=== PATIENT | female | born 1950 | race Caucasian/White ===

== ENCOUNTER → 2023-12-31 17:07 | Outpatient (REF) | payer OTHER, SELFPAY | LOC: HWRAD 17:07 | PROVIDERS: ATTENDING PHYSICIAN Nurse Practitioner Family | DX: U07.1 COVID-19 (principal); R05.9 Cough, unspecified | CPT/HCPCS: 71046 ==

== ENCOUNTER → 2024-01-12 09:59 | Outpatient (REF) | payer OTHER, SELFPAY | LOC: HWRCS 09:59 | PROVIDERS: ATTENDING PHYSICIAN Internal Medicine Critical Care Medicine; FAMILY PHYSICIAN Nurse Practitioner Family | DX: J84.89 Other specified interstitial pulmonary diseases (principal); R76.8 Other specified abnormal immunological findings in serum; I27.29 Other secondary pulmonary hypertension | CPT/HCPCS: 93306 ==

== ENCOUNTER 2024-04-23 19:06 | Emergency (ER) | payer OTHER, SELFPAY ==
[2024-04-23 19:09] VITALS: BP 132/84
[2024-04-23 21:52] LABS: % Basophils 0.3 % (0-2); % Eosinophils 0.7 % (0-6); % Immature Granulocytes 0.4 % (0-0.5); % Lymphocytes 15.4 % (20.5-51.1); % Monocytes 12.3 % (1.7-9.3); % Neutrophils 70.9 % (42.2-75.2); Absolute Eosinophils 0.1 10^3/uL (0-0.7); Absolute Lymphocytes 1.1 10^3/uL (1.2-3.4); Absolute Monocytes 0.9 10^3/uL (0.1-0.6); Absolute Neutrophils 5.1 10^3/uL (1.4-6.5); Hematocrit 34.2 % (37.0-47.0); Hemoglobin 12.1 g/dL (12.0-16.0); Mean Corp Hgb Conc. 35.4 g/dL (33.0-37.0); Mean Corpuscular Hgb 32.3 pg (27.0-31.0); Mean Corpuscular Volume 91.2 fL (81.0-99.0); Mean Platelet Volume 9.1 fL (7.4-10.4); Nucleated Red Blood Cells % 0 %; Platelet Count 249 10^3/uL (130-400); Red Blood Cell Count 3.75 10^6/uL (4.20-5.40); Red Cell Dist. Width 13.9 % (11.5-14.5); White Blood Cell Count 7.3 10^3/uL (4.8-10.8)
[2024-04-23 21:53] LABS: Urine Albumin Trace (Neg - Trace); Urine Bilirubin Negative (Negative); Urine Character Clear (Clear); Urine Color Yellow; Urine Glucose Negative (Negative); Urine Ketone Negative (Negative); Urine Leukocyte 2+ (Negative); Urine Nitrite Negative (Negative); Urine Occult Blood Negative (Negative); Urine Specific Gravity 1.015 (<1.030); Urine Urobilinogen Negative (Neg - 1+)
[2024-04-23 22:02] LABS: Urine Squamous Cell >30 /LPF (Few)
[2024-04-23] MEDS: NSS 500 IV (22:02)
[2024-04-23] MEDS: TORADOL 30 MG IV (22:02)
[2024-04-23 22:03] LABS: Urine Bacteria Few (Negative); Urine Red Blood Cell None Seen /HPF (0-2); Urine Yeast Few (Negative)
[2024-04-23 22:34] LABS: ALT (SGPT) 16 U/L (0-35); AST (SGOT) 23 U/L (14-36); Albumin 3.9 g/dl (3.5-5.0); Alkaline Phosphatase 62 U/L (38-126); Blood Urea Nitrogen 17 mg/dl (7-17); Carbon Dioxide 28 mmol/L (22-30); Chloride 98 mmol/L (98-107); Glucose 105 mg/dl (70-99); Potassium 3.9 mmol/L (3.5-5.1); Sodium 134 mmol/L (135-145); Total Bilirubin 1.3 mg/dl (0.2-1.3); eGFR > 60.00
--- NOTE | 2024-04-23 22:48 | ED.GENMED ---
History of Present Illness
<Jay Slaughter Jr., PA-C - Last Filed: 04/23/24 23:53>
General
Chief Complaint: Skin Problem
Source: patient
Exam Limitations: none
Time Seen by Provider: 04/23/24 20:40
Nursing documentation reviewed up to this point in time: agreed with
History of Present Illness
History of Present Illness:
73-year-old female with past medical history of vertigo, hypertension, GERD presenting to the emergency department today with concerns of multiple concerns. Patient's main concern is that she has active shingles rash to the buttock. She also
concerned that she has had difficulty urinating over the past few hours she has been chronically constipated as well. Denies any specific chest pain shortness of breath nausea vomiting.
Past History
<ANAID Waggoner Jr. Last Filed: 04/23/24 23:53>
Past History
ED Past Medical History: HTN and Other (Sleep apnea wears CPAP, barretts esophagus)
ED Past Surgical History: Orthopedic (Left knee replacement, Right total hip replacement and right Knee. Carpal tunnel, Left bunionectomy) and Other (cataracts)
Social History
Tobacco: Former smoker
Alcohol: Occasional
Drug: None
Personal:
Living: with family
Employment: Retired
Review of Systems
<Jay Slaughter Jr., PA-C - Last Filed: 04/23/24 23:53>
Review of Systems
Allergies reviewed?: Yes
All Other Systems: ROS reviewed and negative except as documented in HPI and ROS
Phy Exam
<Jay Slaughter Jr., PA-C - Last Filed: 04/23/24 23:53>
Physical Exam
Physical Exam:
GENERAL: Alert , in no apparent distress
EYE: pupils equal and reactive
NECK: Supple, no significant adenopathy.
ENT: o/p clr, mmm.
CARDIAC: Regular rate and rhythm .
LUNGS: Clear breath sounds bilaterally, no acute respiratory distress, no wheezes/rales/rhonchi
ABDOMEN: Soft, without focal tenderness, no r/g, no cvat
Rectal: Patient has vesicles overlying erythematous base tenderness palpation to the right buttock region no fluctuance or induration. Multiple external hemorrhoids to the anus.
NEUROLOGICAL: Alert and oriented, no focal neuro deficits
SKIN: Warm and dry, skin intact.
MUSCULOSKELETAL: No edema, well perfused.
PSYCH: Normal and appropriate interaction.
Course
<Jay Slaughter Jr., ANAID - Last Filed: 04/23/24 23:53>
Orders/Labs/Results
Orders:
Orders
04/23/24 21:25
0.9% Sodium Chloride 500 ml [Nss] 500 ml IV BOLUS
Ketorolac [Toradol] 30 mg IV NOW STA
04/23/24 21:43
Complete Blood Count/With Diff Urgent
Urinalysis Reflex To Culture Urgent
Date Specimen was Collected: 04/23/24
Time Specimen was Collected: 21:30
Urine Microscopic Reflex Cult Urgent
Urine Culture Urgent
JEFF Source: U
Specimen Description:
Date Specimen was Collected: 04/23/24
Time Specimen was Collected: 21:30
04/23/24 22:13
Comprehensive Metabolic Panel Urgent
04/23/24 22:42
Cabrera Placement- Treatment ONCE
Reason for insertion: Acute Retention
04/24/24 00:02
CT Abd/Pel (IV only)-DH only Urgent
Reason For Exam: abdpain
Abnormal Lab Results
04/23/24 04/23/24
21:43 22:13
RBC 3.75 L 10^6/uL
(4.20-5.40)
Hct 34.2 L %
(37.0-47.0)
MCH 32.3 H pg
(27.0-31.0)
Absolute Lymphs (auto) 1.1 L 10^3/uL
(1.2-3.4)
Absolute Monos (auto) 0.9 H 10^3/uL
(0.1-0.6)
Lymphocytes % 15.4 L %
(20.5-51.1)
Monocytes % 12.3 H %
(1.7-9.3)
Sodium 134 L mmol/L
(135-145)
Glucose 105 H mg/dl
(70-99)
Leukocyte Esterase Rfl 2+ A
(Negative)
Urine Bacteria (Reflex) Few A
(Negative)
Urine Yeast Few A
(Negative)
04/23/24 21:43
04/23/24 22:13
Vital Signs
Initial and Last Documented VS:
Initial Vital Signs
Temp Pulse Resp BP Pulse Ox
100.1 F 109 20 132/84 97
04/23/24 19:09 04/23/24 19:09 04/23/24 19:09 04/23/24 19:09 04/23/24 19:09
Last Documented Vital Signs
Temp Pulse Resp BP Pulse Ox
100.1 F 109 20 132/84 97
04/23/24 19:09 04/23/24 19:09 04/23/24 19:09 04/23/24 19:09 04/23/24 19:09
<Xavier España, DO - Last Filed: 04/24/24 01:08>
Orders/Labs/Results
Orders:
Orders
04/23/24 21:25
0.9% Sodium Chloride 500 ml [Nss] 500 ml IV BOLUS
Ketorolac [Toradol] 30 mg IV NOW STA
04/23/24 21:43
Complete Blood Count/With Diff Urgent
Urinalysis Reflex To Culture Urgent
Date Specimen was Collected: 04/23/24
Time Specimen was Collected: 21:30
Urine Microscopic Reflex Cult Urgent
Urine Culture Urgent
JEFF Source: U
Specimen Description:
Date Specimen was Collected: 04/23/24
Time Specimen was Collected: 21:30
04/23/24 22:13
Comprehensive Metabolic Panel Urgent
04/23/24 22:42
Cabrera Placement- Treatment ONCE
Reason for insertion: Acute Retention
04/24/24 00:02
CT Abd/Pel (IV only)-DH only Urgent
Reason For Exam: abdpain
Abnormal Lab Results
04/23/24 04/23/24
21:43 22:13
RBC 3.75 L 10^6/uL
(4.20-5.40)
Hct 34.2 L %
(37.0-47.0)
MCH 32.3 H pg
(27.0-31.0)
Absolute Lymphs (auto) 1.1 L 10^3/uL
(1.2-3.4)
Absolute Monos (auto) 0.9 H 10^3/uL
(0.1-0.6)
Lymphocytes % 15.4 L %
(20.5-51.1)
Monocytes % 12.3 H %
(1.7-9.3)
Sodium 134 L mmol/L
(135-145)
Glucose 105 H mg/dl
(70-99)
Leukocyte Esterase Rfl 2+ A
(Negative)
Urine Bacteria (Reflex) Few A
(Negative)
Urine Yeast Few A
(Negative)
04/23/24 21:43
04/23/24 22:13
Vital Signs
Initial and Last Documented VS:
Initial Vital Signs
Temp Pulse Resp BP Pulse Ox
100.1 F 109 20 132/84 97
04/23/24 19:09 04/23/24 19:09 04/23/24 19:09 04/23/24 19:09 04/23/24 19:09
Last Documented Vital Signs
Temp Pulse Resp BP Pulse Ox
100.1 F 109 20 132/84 97
04/23/24 19:09 04/23/24 19:09 04/23/24 19:09 04/23/24 19:09 04/23/24 19:09
<Jay Slaughter Jr., PA-C - Last Filed: 04/23/24 23:53>
MDM/Problems Addressed
MDM/Problems Addressed:
73-year-old female presenting to the emergency department today with concerns of rash to the buttock recently diagnosed with shingles started on antiviral as well as Augmentin for potential secondary bacterial infection. There is also concern
constipated also has not been able to urinate for half of the day today as well. Here she was found to be retaining urine ended up getting a Cabrera catheter urinalysis without obvious infection. Labs without acute abnormalities. Rash was confirmed
to be consistent with shingles rash but no signs of secondary bacterial infection no fluctuance or induration. Patient was reassessed after labs were resulted no acute abnormalities to the labs urinalysis without signs of infection but patient
still with some ongoing discomfort to the abdomen CT scan was ordered for further assessment.
<Xavier España DO - Last Filed: 04/24/24 01:08>
*Critical Care Note
Total Time (30-74mins, 75-104mins- exclusive of procedures): Not Applicable
ED Attending Note
<Jay Slaughter Jr., PA-C - Last Filed: 04/23/24 23:53>
-
Portions of this chart may have been created with voice recognition software.� Occasional wrong word or��sound alike� substitutions may have occurred due to the inherent limitations of voice recognition software.
<Xavier España DO - Last Filed: 04/24/24 01:08>
ED Attending Note
Patient seen and examined by attending physician: Yes
I performed the substantive portion of visit, reviewed & personally made and approve the management plan that is documented in note by myself or TRINITY.: Yes
ED Attending Note:
Seen with PA agree with assessment and plan nontoxic 73-year-old female CT scan reviewed with patient she would like to have her Cabrera removed, to reiterate that she may have recurrent retention requiring a second ER visit
Discharge Plan
Departure
Patient with high blood pressure during this ER visit?: No
Condition: Good
Covid-19: Not Applicable
Discharge Problem:
Acute urinary retention, Shingles, Constipation
Instructions: How to Care for Your Cabrera Catheter, Shingles
Prescriptions:
New
valacyclovir 1 gram tablet
1,000 mg PO TID 7 Days Qty: 21 0RF
amoxicillin-pot clavulanate 875-125 mg tablet
1 tab PO BID 7 Days Qty: 14 0RF
No Action
omeprazole 20 MG capsule,delayed release(DR/EC)
20 mg PO DAILY
cholecalciferol (vitamin D3) [Vitamin D3] 25 MCG capsule
50 mcg PO DAILY
magnesium 200 MG tablet
400 mg PO DAILY
Vitamin B-Complex With B 12
1 tab PO DAILY
hydrochlorothiazide 25 MG tablet
25 mg PO DAILY Qty: 1 0RF
Rx Instructions:
Hold if systolic blood pressure <130
amlodipine 2.5 mg tablet
2.5 mg PO DAILY Qty: 90 5RF
losartan 50 mg Tablet
50 mg PO DAILY
vitamin A-vitamin C-vit E-min Tablet
1 tab PO DAILY
guaifenesin 600 mg Tablet Extended Release 12hr
1,200 mg PO Q12 7 Days Qty: 28 0RF
cefdinir 300 mg capsule
300 mg PO Q12H 5 Days Qty: 10 0RF
azithromycin 500 mg tablet
500 mg PO DAILY 1 Days Qty: 1 0RF
ondansetron 4 mg tablet,disintegrating
4 mg PO TID PRN (Reason: nausea and vomiting) Qty: 10 0RF
Referrals:
Librado Dc CRNP [Family Provider] -
Joel Gann MD [Active] - Follow up in 5-7 days
Activity Restrictions/Additional Instructions:
You came to the emergency department today with a few concerns. You are found to have shingles please take valacyclovir 3 times daily over the next week as well as Augmentin twice daily over the next week. Additionally you have constipation.
Please take mag citrate as a single dose as well as MiraLAX daily as needed. Please help closely with urology to have your Cabrera catheter removed. Return to the emergency department for any worsening, new or concerning symptoms.
Interventions
Interventions:
*Risk Screen - Suicide Last Done: 04/23/24 19:09
*General Assessment Last Done: 04/23/24 19:09
*Neglect/Abuse Screening Last Done: 04/23/24 19:09
ED-Skin Assessment Last Done: 04/23/24 21:20
Discharge Date and Time
Print Language: INDONESIAN
[2024-04-24 01:21] VITALS: BP 127/88
== END 2024-04-24 01:35 | disposition home or self-care (01) ==
LOC: EMR 19:06
PROVIDERS: Physician Assistant; EMERGENCY PHYSICIAN Emergency Medicine; FAMILY PHYSICIAN Nurse Practitioner Family
DX: R33.9 Retention of urine, unspecified (principal); B02.9 Zoster without complications; K59.00 Constipation, unspecified; I10 Essential (primary) hypertension; K21.9 Gastro-esophageal reflux disease without esophagitis; Z87.891 Personal history of nicotine dependence
CPT/HCPCS: 99285; 96374; 96361; 51798; 51702; 74177; 80053; 81003; 81015; 85025; 87086; Q9967

== ENCOUNTER → 2024-11-05 14:19 | Outpatient (REF) | payer OTHER, SELFPAY | LOC: HWRCS 14:19 | PROVIDERS: ATTENDING PHYSICIAN Internal Medicine Critical Care Medicine; FAMILY PHYSICIAN Nurse Practitioner Family | DX: I27.29 Other secondary pulmonary hypertension (principal); G47.33 Obstructive sleep apnea (adult) (pediatric); J84.9 Interstitial pulmonary disease, unspecified; R76.8 Other specified abnormal immunological findings in serum | CPT/HCPCS: 93306 ==

== ENCOUNTER → 2024-11-08 09:56 | Outpatient (REF) | payer OTHER, SELFPAY | LOC: HWRAD 09:56 | PROVIDERS: ATTENDING PHYSICIAN Internal Medicine Critical Care Medicine; FAMILY PHYSICIAN Nurse Practitioner Family; REFERRING PHYSICIAN Internal Medicine | DX: J84.89 Other specified interstitial pulmonary diseases (principal); R76.8 Other specified abnormal immunological findings in serum; I27.29 Other secondary pulmonary hypertension | CPT/HCPCS: 71250 ==

== ENCOUNTER → 2024-11-29 14:39 | Outpatient (REF) | payer OTHER, SELFPAY | LOC: HWWDC 14:39 | PROVIDERS: ATTENDING PHYSICIAN Nurse Practitioner Family; REFERRING PHYSICIAN Obstetrics & Gynecology | DX: Z12.31 Encounter for screening mammogram for malignant neoplasm of breast (principal) | CPT/HCPCS: 77063; 77067 ==

== ENCOUNTER → 2025-03-30 16:06 | Outpatient (REF) | payer OTHER, SELFPAY | LOC: RAD 16:06 | PROVIDERS: ATTENDING PHYSICIAN Nurse Practitioner Family | DX: Z00.01 Encounter for general adult medical examination with abnormal findings (principal); R60.0 Localized edema | CPT/HCPCS: 93971 ==

== ENCOUNTER → 2025-08-03 14:53 | Outpatient (REF) | payer OTHER, SELFPAY | LOC: HWRAD 14:53 | PROVIDERS: ATTENDING PHYSICIAN Nurse Practitioner Family | DX: M54.2 Cervicalgia (principal) | CPT/HCPCS: 72050 ==

== ENCOUNTER 2025-10-24 10:59 | Emergency (ER) | payer OTHER, SELFPAY ==
[2025-10-24 11:05] VITALS: BP 135/67
[2025-10-24 11:21] VITALS: BMI 38.4
[2025-10-24 11:32] VITALS: BP 126/56
[2025-10-24 11:54] LABS: Hematocrit 34.9 % (37.0-47.0); Hemoglobin 11.8 g/dL (12.0-16.0); Mean Corp Hgb Conc. 33.8 g/dL (33.0-37.0); Mean Corpuscular Volume 93.6 fL (81.0-99.0); Nucleated Red Blood Cells % 0 %; Platelet Count 236 10^3/uL (130-400); Red Cell Dist. Width 13.8 % (11.5-14.5)
--- NOTE | 2025-10-24 12:03 | ED.GENMED ---
History of Present Illness
General
Chief Complaint: Fever
Source: patient and spouse
Exam Limitations: none
Time Seen by Provider: 10/24/25 11:20
History of Present Illness
History of Present Illness:
75-year-old female with a history of interstitial lung disease presents with fever chills myalgias cough congestion. Started 2 to 3 days ago. Had low pulse ox's at home today but was not unusually short of breath. In addition these pulse ox's
would vary from the 70s to the 90s. Patient has been around a ill grandchild the last few days
Past History
Past History
ED Past Medical History: HTN and Other (Sleep apnea wears CPAP, barretts esophagus. Interstitial lung disease)
ED Past Surgical History: Orthopedic (Left knee replacement, Right total hip replacement and right Knee. Carpal tunnel, Left bunionectomy) and Other (cataracts)
Social History
Tobacco: Former smoker
Alcohol: Occasional
Drug: None
Personal:
Living: with family
Employment: Retired
Phy Exam
Physical Exam
Physical Exam:
GENERAL: Alert and oriented in no apparent distress
EYE: Orbits normal.
NECK: Supple, no significant adenopathy.
ENT: Pharynx without erythema
CARDIAC: Regular rate and rhythm without any obvious murmurs.
LUNGS: No respiratory distress. However crackles and mild expiratory wheezing mostly in the left base
ABDOMEN: Soft, without focal tenderness or distention
NEUROLOGICAL: Alert and oriented , grossly non-focal
SKIN: Warm and dry, no rash or lesion, no discoloration, skin intact.
MUSCULOSKELETAL: No edema,no deformity.Good color
PSYCH: Normal and appropriate interaction.
Course
Orders/Labs/Results
Orders:
Orders
10/24/25 11:07
Electrocardiogram (*1) Urgent
Reason for Study: Shortness of Breath
EKG- Treatment ONCE
10/24/25 11:31
COVID-19 Antigen Urgent
Source: Nasal Swab
Complete Blood Count/With Diff Urgent
Comprehensive Metabolic Panel Urgent
Influenza A+B Rapid Molecular Urgent
JEFF Source: Nasal Swab
Specimen Description:
10/24/25 11:35
CXR2 [CR Chest - 2 Views ] Urgent
Comment:
Reason For Exam: Cough/fever
10/24/25 11:44
RSV [Respiratory Syncytial Virus] Urgent
JEFF Source: Nasal Swab
Specimen Description:
Date Specimen was Collected: 10/24/25
Time Specimen was Collected: 11:38
10/24/25 13:28
Doxycycline [Vibramycin] 100 mg PO NOW STA
Oseltamivir Phosphate [Tamiflu] 75 mg PO NOW STA
Abnormal Lab Results
10/24/25
11:31
RBC 3.73 L 10^6/uL
(4.20-5.40)
Hgb 11.8 L g/dL
(12.0-16.0)
Hct 34.9 L %
(37.0-47.0)
MCH 31.6 H pg
(27.0-31.0)
Absolute Lymphs (auto) 0.5 L 10^3/uL
(1.2-3.4)
Absolute Monos (auto) 0.8 H 10^3/uL
(0.1-0.6)
Neutrophils % 78.4 H %
(42.2-75.2)
Lymphocytes % 7.4 L %
(20.5-51.1)
Monocytes % 11.6 H %
(1.7-9.3)
Sodium 134 L mmol/L
(135-145)
BUN 18 H mg/dl
(7-17)
Glucose 109 H mg/dl
(70-99)
Total Bilirubin 1.4 H mg/dl
(0.2-1.3)
10/24/25 11:31
10/24/25 11:31
Vital Signs
Initial and Last Documented VS:
Initial Vital Signs
Temp Pulse Resp BP Pulse Ox
99.7 F 107 19 135/67 95
10/24/25 11:05 10/24/25 11:05 10/24/25 11:05 10/24/25 11:05 10/24/25 11:05
Last Documented Vital Signs
Temp Pulse Resp BP Pulse Ox
98.7 F 83 26 122/76 94
10/24/25 13:44 10/24/25 13:00 10/24/25 13:00 10/24/25 13:44 10/24/25 13:00
*Radiology
Radiology exam reviewed: preliminary read by ED provider (Increased interstitial markings left midlung) and radiology read reviewed (Chronic changes)
*Pulse Oximetry
SaO2: 97
Oxygen Mode of Delivery: Room air
Patient hypoxic: no
*Critical Care Note
Total Time (30-74mins, 75-104mins- exclusive of procedures): Not Applicable
Update Note
Update Note:
Patient has remained medically stable and nontoxic. Pulse ox 96 to 97%. No resp distress. No dehydration. Influenza positive. I was slightly suspicious of a pneumonitis in the left upper lobe that is new however radiology felt the x-ray was
unchanged given patient's nontoxic appearance reasonable to manage her influenza as an outpatient. She is right about the 2-day hallie but fever started yesterday. With her underlying medical issues we will start Tamiflu. Also cover for secondary
bacterial issue.
ED Attending Note
-
Portions of this chart may have been created with voice recognition software.� Occasional wrong word or��sound alike� substitutions may have occurred due to the inherent limitations of voice recognition software.
Discharge Plan
Departure
Patient Disposition: Home (Routine Discharge)
Date of Disposition: 10/24/25
Time of Disposition: 13:30
Patient with high blood pressure during this ER visit?: Yes
Discharge Problem:
Influenza, Interstitial lung disease
Instructions: Flu in adults (DC), BLOOD PRESSURE
Prescriptions:
New
doxycycline hyclate 100 mg capsule
100 mg PO BID 10 Days Qty: 20 0RF
oseltamivir [Tamiflu] 75 mg capsule
75 mg PO BID 5 Days Qty: 10 0RF
No Action
omeprazole 20 MG capsule,delayed release(DR/EC)
20 mg PO DAILY
cholecalciferol (vitamin D3) [Vitamin D3] 25 MCG capsule
50 mcg PO DAILY
magnesium 200 MG tablet
400 mg PO DAILY
Vitamin B-Complex With B 12
1 tab PO DAILY
hydrochlorothiazide 25 MG tablet
25 mg PO DAILY Qty: 1 0RF
Rx Instructions:
Hold if systolic blood pressure <130
amlodipine 2.5 mg tablet
2.5 mg PO DAILY Qty: 90 5RF
losartan 50 mg Tablet
50 mg PO DAILY
vitamin A-vitamin C-vit E-min Tablet
1 tab PO DAILY
guaifenesin 600 mg Tablet Extended Release 12hr
1,200 mg PO Q12 7 Days Qty: 28 0RF
cefdinir 300 mg capsule
300 mg PO Q12H 5 Days Qty: 10 0RF
azithromycin 500 mg tablet
500 mg PO DAILY 1 Days Qty: 1 0RF
ondansetron 4 mg tablet,disintegrating
4 mg PO TID PRN (Reason: nausea and vomiting) Qty: 10 0RF
valacyclovir 1 gram tablet
1,000 mg PO TID 7 Days Qty: 21 0RF
amoxicillin-pot clavulanate 875-125 mg tablet
1 tab PO BID 7 Days Qty: 14 0RF
Referrals:
Librado Dc CRNP [Family Provider, Family Practice] - Follow up in 2-3 days
Activity Restrictions/Additional Instructions:
The prescriptions were sent to your pharmacy
Stay well-hydrated
Return with any concerns of progression of symptoms including shortness of breath hypoxia vomiting etc.
Interventions
Interventions:
*General Assessment Last Done: 10/24/25 11:06
*Neglect/Abuse Screening Last Done: 10/24/25 11:06
*ED COVID-19 Vaccine History Last Done: 10/24/25 11:06
*ED Influenza Vaccine History Last Done: 10/24/25 11:06
[facility] Fall Risk Assessment Tool Last Done: 10/24/25 11:07
*Risk Screen - Suicide (C-SSRS) Last Done: 10/24/25 11:06
*Nursing Disposition Last Done: 10/24/25 13:53
ED- Neurological Assessment Last Done: 10/24/25 11:47
ED-Skin Assessment Last Done: 10/24/25 11:47
Discharge Date and Time
Discharge Date/Time: 10/24/25 13:54
Print Language: [id number]
[2025-10-24 12:05] LABS: ALT (SGPT) 23 U/L (0-35); AST (SGOT) 35 U/L (14-36); Albumin 4.1 g/dl (3.5-5.0); Alkaline Phosphatase 83 U/L (38-126); Blood Urea Nitrogen 18 mg/dl (7-17); Calcium 8.7 mg/dl (8.4-10.2); Carbon Dioxide 28 mmol/L (22-30); Chloride 101 mmol/L (98-107); Estimated Creatinine Clearance 78 ml/min; Glucose 109 mg/dl (70-99); Potassium 3.8 mmol/L (3.5-5.1); Sodium 134 mmol/L (135-145); Total Protein 7.3 g/dl (6.3-8.2); eGFR > 60.00
[2025-10-24 12:15] LABS: COVID-19 Antigen Negative (Negative)
[2025-10-24] MEDS: TAMIFLU 75 MG PO (13:35)
[2025-10-24] MEDS: VIBRAMYCIN 100 MG PO (13:35)
[2025-10-24 13:44] VITALS: BP 122/76
== END 2025-10-24 13:54 | disposition home or self-care (01) ==
LOC: EMR 10:59
PROVIDERS: Emergency Medicine; EMERGENCY PHYSICIAN Emergency Medicine; FAMILY PHYSICIAN Nurse Practitioner Family
DX: J10.1 Influenza due to other identified influenza virus with other respiratory manifestations (principal); J84.9 Interstitial pulmonary disease, unspecified; I10 Essential (primary) hypertension; G47.30 Sleep apnea, unspecified; K22.70 Barrett's esophagus without dysplasia; Z87.891 Personal history of nicotine dependence; Z96.641 Presence of right artificial hip joint; Z96.653 Presence of artificial knee joint, bilateral
CPT/HCPCS: 99284; 71046; 80053; 85025; 87502; 87807; 87811; 93005